=== PATIENT | female | born 1965 | race Hispanic/Latino ===

== ENCOUNTER 2022-01-12 16:26 | Inpatient (IN) | payer MEDICAID ==
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
--- NOTE | 2022-01-14 08:44 | History and Physical Report ---
GP History & Physical - History of Present Illness Date of admission: 01/13/22 Date of Examination: 01/14/22 Reason for Admission: Danger to self, Failure of Outpatient Treatment, Severe anxiety/depression History of Present Illness: HPI: Delusional, Walking into traffic, non-compliant w/ meds and responding to internal stimuli. The patient was seen today. She is delusional. Her thoughts are somewhat disorganized. The patient is unkempt. When I ask her, her name she says "call me whatever you wanna call me." She endorses a past use of "meth, crack, cocaine." The patient doesn't recall any of her meds. She says she is here because "they made me have mental health. They've been making me have it for years." I ask the the patient who are "they." She says "the ones making me have it." The patient says "I want an nib inspector and take it to the highest court." She denies SI/HI or hallucinations. She says "no, none of that." PAST PSYCHIATRIC HISTORY: Unable to assess PAST MEDICAL HISTORY: None reported Family Psychiatric History None reported or documented SOCIAL HISTORY Unable to assess REVIEW OF SYSTEMS Unable to assess MENTAL STATUS Unable to assess Treatment Plan Patient will be admitted for inpatient psychiatric evaluation, medication adjustment and close monitoring The patient's behavior, mood, sleep and appetite will be closely monitored. Patient will be enrolled in individual and group therapeutic sessions and encouraged to attend. Patient will be provided with a safe and structured environment. Patient's physical health needs will be addressed by the Hospitalist. Hospitalist Consulted Labs including CBC, CMP, Lipid profile and Hemoglobin A1C ordered Social Assessment will be completed and the Fiberglass Luggage Molder will work with patient and family to ensure a suitable and safe disposition Medication adjustment will be made as clinically indicated Restarted home meds Usual Wellness Worship/Preservation: -Trazodone 50mg po qhs - Start [place]-3 for brain health, reduce impulsivity, and as adjunctive treatment for mood disorder, continue upon discharge given overall benefits. The patient agreed on the treatment plan, understood the risk, benefit, alternative treatment, potential consequence of no treatment, and gave informed consent. Legal Status: Voluntary Reaction to Hospitalization: Accepting Medications and Allergies Allergies Allergy/AdvReac Type Severity Reaction Status Date / Time No Known Allergies Allergy Unverified 01/13/22 17:36 Home Medications Medication Instructions Recorded Confirmed Last Taken Type HYDROcodone/APAP 5-325 [[place] 1 each PO Q4HR PRN 01/13/22 01/13/22 Unknown History 5/325] Hyoscyamine Subl [Levsin Sl 0.125 0.125 mg PO Q4HR PRN 01/13/22 01/13/22 Unknown History TAB] Ibuprofen [Motrin] 800 mg PO Q8HR PRN 01/13/22 01/13/22 Unknown History [place] Carbonate [Eskalith] 300 mg PO TID 01/13/22 01/13/22 Unknown History Naproxen [Naprosyn] 500 mg PO Q12HR PRN 01/13/22 01/13/22 Unknown History OLANzapine [ZyPREXA] 5 mg PO QHS 01/13/22 01/13/22 Unknown History Oxycodone HCl/Acetaminophen 1 each PO Q6HR PRN 01/13/22 01/13/22 Unknown History [Percocet 7.5/325 mg] Sucralfate [Carafate] 1 gm PO ACHS 01/13/22 01/13/22 Unknown History metroNIDAZOLE [Flagyl] 500 mg PO Q8HR 01/13/22 01/13/22 Unknown History traMADoL [Ultram] 50 mg PO Q4HR PRN 01/13/22 01/13/22 Unknown History Active Meds: Active Medications Ziprasidone (Ziprasidone Mesylate 20 Mg Vial) 20 mg IM Q4H PRN PRN Reason: Agitation Results - Results Labs/Vitals: Last Vital Signs Temp 98.6 F 01/13/22 19:51 Pulse 97 H 01/13/22 19:51 Resp 18 01/13/22 19:51 BP 102/74 01/13/22 19:51 Pulse Ox 98 01/13/22 19:51 Physical Examination - Constitutional Vitals: Vital Signs Temp Pulse Resp BP Pulse Ox 98.6 F 97 H 18 102/74 98 01/13/22 19:51 01/13/22 19:51 01/13/22 19:51 01/13/22 19:51 01/13/22 19:51 Temperature -Last 24 Hours Temperature 98.6 F Mental Status Exam - Vital signs Last Vital Signs Temp 98.6 F 01/13/22 19:51 Pulse 97 H 01/13/22 19:51 Resp 18 01/13/22 19:51 BP 102/74 01/13/22 19:51 Pulse Ox 98 01/13/22 19:51 Physician Certification - Certification Statement Physician Certification Statement: This is an acknowledgement statement that RHONDA YOUNG is a 56 year old F who requires inpatient psychiatric admission for treatment which could reasonably be expected to improve the patient's condition for Estimated period of time patient will need to remain in the hospital: [ ] Plan for post-hospital care: [ ]
[2022-01-14] MEDS ORDERED: NAPROXEN 500 MG TAB PO PRN (10:00)
[2022-01-14] MEDS ORDERED: traMADol 50 MG TAB PO PRN (10:00)
[2022-01-14] MEDS ORDERED: HYOSCYAMINE SUBL 0.125 MG TAB PO PRN (10:00)
[2022-01-14 11:16] LABS: Basophils # (Auto) 0.1 K/mm3 (0.0-0.1); Basophils % (Auto) 1.2 % (0.0-1.8); Eosinophils # (Auto) 0.1 K/mm3 (0.0-0.4); Eosinophils % (Auto) 1.6 % (0.0-4.3); Hematocrit 40.6 % (30.3-42.9); Hemoglobin 13.3 gm/dl (10.1-14.3); Lymphocytes # (Auto) 1.3 K/mm3 (1.2-5.4); Mean Corpuscular HGB Conc 33 % (30-34); Mean Corpuscular Volume 98 fl (79-97); Monocytes # (Auto) 0.3 K/mm3 (0.0-0.8); Monocytes % (Auto) 6.4 % (0.0-7.3); Red Blood Count 4.13 M/mm3 (3.65-5.03); Red Cell Distribution Width 13.7 % (13.2-15.2)
[2022-01-14 11:29] LABS: Platelet Count 183 K/mm3 (140-440)
[2022-01-14 11:43] LABS: Alanine Aminotransferase 20 units/L (7-56); Albumin 3.5 g/dL (3.9-5); Blood Urea Nitrogen 12 mg/dL (7-17); Chol/HDL Ratio 3.27 %; HDL Cholesterol 43 mg/dL (40-59); Hemolysis Index 14; LDL Cholesterol,Direct 81 mg/dL (50-130)
[2022-01-14 11:51] LABS: BUN/Creatinine Ratio 24
[2022-01-14] MEDS: IBUPROFEN 800 MG TAB PO PRN (13:46)
[2022-01-14] MEDS: LITHIUM CARBONATE 300 MG CAP PO SCH ×2 (13:47→20:26)
[2022-01-14] MEDS: SUCRALFATE 1 GM TAB PO SCH ×3 (16:30→21:55)
[2022-01-14] MEDS: NICOTINE 21 MG/24 HR PATCH TD SCH (17:16)
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
[2022-01-15] MEDS: SUCRALFATE 1 GM TAB PO SCH ×4 (08:45→21:23)
[2022-01-15] MEDS: LITHIUM CARBONATE 300 MG CAP PO SCH ×3 (08:45→20:54)
[2022-01-15] MEDS: NICOTINE 21 MG/24 HR PATCH TD SCH (09:00)
--- NOTE | 2022-01-15 12:01 | Progress Note ---
Subjective Date of service: 01/15/22 Subjective Comment: The patient was seen this morning. She reports doing doing well and focused on discharge. The patient reported having intermittent AVH. non-commanding. The patient denies depression. She denies SI/HI. REVIEW OF SYSTEMS Unable to assess MENTAL STATUS Unable to assess Treatment Plan Patient will be admitted for inpatient psychiatric evaluation, medication adjustment and close monitoring The patient's behavior, mood, sleep and appetite will be closely monitored. Patient will be enrolled in individual and group therapeutic sessions and encouraged to attend. Patient will be provided with a safe and structured environment. Patient's physical health needs will be addressed by the Hospitalist. Hospitalist Consulted Labs including CBC, CMP, Lipid profile and Hemoglobin A1C ordered Social Assessment will be completed and the Ac/Dc Rewinder will work with patient and family to ensure a suitable and safe disposition Medication adjustment will be made as clinically indicated Continue home meds Usual Wellness Yarsanism/Preservation: -Trazodone 50mg po qhs - Start [place]-3 for brain health, reduce impulsivity, and as adjunctive treatment for mood disorder, continue upon discharge given overall benefits. The patient agreed on the treatment plan, understood the risk, benefit, alternative treatment, potential consequence of no treatment, and gave informed consent. Legal Status: Voluntary Reaction to Hospitalization: Accepting Medications and Allergies Medications and Allergies Allergies Allergy/AdvReac Type Severity Reaction Status Date / Time No Known Allergies Allergy Unverified 01/13/22 17:36 Home Medications Medication Instructions Recorded Confirmed Last Taken Type HYDROcodone/APAP 5-325 [[place] 1 each PO Q4HR PRN 01/13/22 01/13/22 Unknown History 5/325] Hyoscyamine Subl [Levsin Sl 0.125 0.125 mg PO Q4HR PRN 01/13/22 01/13/22 Unknown History TAB] Ibuprofen [Motrin] 800 mg PO Q8HR PRN 01/13/22 01/13/22 Unknown History [place] Carbonate [Eskalith] 300 mg PO TID 01/13/22 01/13/22 Unknown History Naproxen [Naprosyn] 500 mg PO Q12HR PRN 01/13/22 01/13/22 Unknown History OLANzapine [ZyPREXA] 5 mg PO QHS 01/13/22 01/13/22 Unknown History Oxycodone HCl/Acetaminophen 1 each PO Q6HR PRN 01/13/22 01/13/22 Unknown History [Percocet 7.5/325 mg] Sucralfate [Carafate] 1 gm PO ACHS 01/13/22 01/13/22 Unknown History metroNIDAZOLE [Flagyl] 500 mg PO Q8HR 01/13/22 01/13/22 Unknown History traMADoL [Ultram] 50 mg PO Q4HR PRN 01/13/22 01/13/22 Unknown History Active Meds: Active Medications Hyoscyamine (Hyoscyamine Subl 0.125 Mg Tab) 0.125 mg PO Q4HR PRN PRN Reason: cramping Ibuprofen (Ibuprofen 800 Mg Tab) 800 mg PO Q8HR PRN PRN Reason: Pain , Severe (7-10) Last Admin: 01/14/22 13:46 Dose: 800 mg [place] Carbonate ([place] Carbonate 300 Mg Cap) 300 mg PO TID [facility] Last Admin: 01/15/22 08:45 Dose: 300 mg Naproxen (Naproxen 500 Mg Tab) 500 mg PO Q12HR PRN PRN Reason: Pain , Severe (7-10) Nicotine (Nicotine 21 Mg/24 Hr Patch) 21 mg TD QDAY [facility] Last Admin: 01/14/22 17:16 Dose: 21 mg Olanzapine (Olanzapine 5 Mg Tab) 5 mg PO QHS [facility] Last Admin: 01/14/22 21:55 Dose: 5 mg Sucralfate (Sucralfate 1 Gm Tab) 1 gm PO [facility] Last Admin: 01/15/22 08:45 Dose: 1 gm Tramadol HCl (Tramadol 50 Mg Tab) 50 mg PO Q4HR PRN PRN Reason: PAIN Ziprasidone (Ziprasidone Mesylate 20 Mg Vial) 20 mg IM Q4H PRN PRN Reason: Agitation Results - Results Labs/Vitals: Laboratory Last Values WBC 5.1 K/mm3 (4.5-11.0) 01/13/22 10:38 RBC 4.13 M/mm3 (3.65-5.03) 01/13/22 10:38 Hgb 13.3 gm/dl (10.1-14.3) 01/13/22 10:38 Hct 40.6 % (30.3-42.9) 01/13/22 10:38 MCV 98 fl (79-97) H 01/13/22 10:38 MCH 32 pg (28-32) 01/13/22 10:38 MCHC 33 % (30-34) 01/13/22 10:38 RDW 13.7 % (13.2-15.2) 01/13/22 10:38 Plt Count 183 K/mm3 (140-440) 01/13/22 10:38 Lymph % (Auto) 26.0 % (13.4-35.0) 01/13/22 10:38 [place] % (Auto) 6.4 % (0.0-7.3) 01/13/22 10:38 Eos % (Auto) 1.6 % (0.0-4.3) 01/13/22 10:38 Baso % (Auto) 1.2 % (0.0-1.8) 01/13/22 10:38 Lymph # (Auto) 1.3 K/mm3 (1.2-5.4) 01/13/22 10:38 [place] # (Auto) 0.3 K/mm3 (0.0-0.8) 01/13/22 10:38 Eos # (Auto) 0.1 K/mm3 (0.0-0.4) 01/13/22 10:38 Baso # (Auto) 0.1 K/mm3 (0.0-0.1) 01/13/22 10:38 Seg Neutrophils % 64.8 % (40.0-70.0) 01/13/22 10:38 Seg Neutrophils # 3.3 K/mm3 (1.8-7.7) 01/13/22 10:38 Sodium 143 mmol/L (137-145) 01/13/22 10:44 Potassium 4.6 mmol/L (3.6-5.0) 01/13/22 10:44 Chloride 109.6 mmol/L (98-107) H 01/13/22 10:44 Carbon Dioxide 27 mmol/L (22-30) 01/13/22 10:44 Anion Gap 11 mmol/L 01/13/22 10:44 BUN 12 mg/dL (7-17) 01/13/22 10:44 Creatinine 0.5 mg/dL (0.6-1.2) L 01/13/22 10:44 Estimated GFR > 60 ml/min 01/13/22 10:44 BUN/Creatinine Ratio 24 % 01/13/22 10:44 Glucose 89 mg/dL (65-100) 01/13/22 10:44 Hemoglobin A1c 5.5 % (4-6) 01/13/22 10:44 Calcium 9.0 mg/dL (8.4-10.2) 01/13/22 10:44 Total Bilirubin 0.20 mg/dL (0.1-1.2) 01/13/22 10:44 AST 26 units/L (5-40) 01/13/22 10:44 ALT 20 units/L (7-56) 01/13/22 10:44 Alkaline Phosphatase 87 units/L (35-129) 01/13/22 10:44 Total Protein 5.9 g/dL (6.3-8.2) L 01/13/22 10:44 Albumin 3.5 g/dL (3.9-5) L 01/13/22 10:44 Albumin/Globulin Ratio 1.5 % 01/13/22 10:44 Triglycerides 115 mg/dL (2-149) 01/13/22 10:44 Cholesterol 141 mg/dL (50-199) 01/13/22 10:44 LDL Cholesterol Direct 81 mg/dL (50-130) 01/13/22 10:44 HDL Cholesterol 43 mg/dL (40-59) 01/13/22 10:44 Cholesterol/HDL Ratio 3.27 % 01/13/22 10:44 TSH 0.946 mlU/mL (0.270-4.200) 01/13/22 10:38 [place] 0.1 mmol/L (0.0-1.2) 01/14/22 10:38 Last Vital Signs Temp 98.3 F 01/14/22 21:03 Pulse 88 01/14/22 21:03 Resp 16 01/14/22 21:03 BP 117/64 01/14/22 21:03 Pulse Ox 99 01/14/22 21:03
[2022-01-15] MEDS ORDERED: WATER FOR INJ Sterile (PF) 10 ML ONE (13:21)
[2022-01-15] MEDS: ZIPRASIDONE MESYLATE 20 MG VIAL IM PRN (13:30)
[2022-01-16] MEDS: ZIPRASIDONE MESYLATE 20 MG VIAL IM PRN (00:13)
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
--- NOTE | 2022-01-16 09:19 | Progress Note ---
Subjective Date of service: 01/16/22 Subjective Comment: 01/16:The patient was seen this morning. The patient presents as angry, Isolating and focused on discharge. She lacks insight " I told them not to place in a place like this, I don't want to take that lithium." the patient is verbally aggressive and irritable. She denies SI/HI. Per nurse, " pt alert and oriented to person and place, angry affect, irritable, verbally aggressive towards staff, medication compliant, good appetite, constant asking for something to eat, staff offered extra snack, Pt observed responding to internal stimuli, pacing back and forth in her room, yelling, slammed the door multiple times, refused verbal redirection. Geodon 20mg IM administered prn for severe agitation at 0013 with good effect." 01/15:The patient was seen this morning. She reports doing doing well and focused on discharge. The patient reported having intermittent AVH. non- commanding. The patient denies depression. She denies SI/HI. REVIEW OF SYSTEMS Constitutional: Negative for weight loss ENT: Negative for stridor Respiratory: Negative for cough or hemoptysis All other systems reviewed and are negative MENTAL STATUS EXAMINATION General Appearance and Behavior: Age appropriate, wearing appropriate clothes, cooperative, polite with questioning, good eye contact Cooperation: cooperative Psychomotor Behavior: Psychomotor normal Mood: angry Affect and affective range: congruent with stated affect Thought Process: Goal directed Thought Content: reality oriented Speech: Normal volume, Regular rate and rhythm Suicidal Ideation: Denies Homicidal Ideation: Denies Hallucination: Denies Delusions: None elicited Impulse Control: Limited Insight and Judgment: Limited Memory: intact Attention: attentive Orientation: Alert and oriented Assessment Schizoaffective disorder Treatment Plan Patient will be admitted for inpatient psychiatric evaluation, medication adjustment and close monitoring The patient's behavior, mood, sleep and appetite will be closely monitored. Patient will be enrolled in individual and group therapeutic sessions and encouraged to attend. Patient will be provided with a safe and structured environment. Patient's physical health needs will be addressed by the Hospitalist. Hospitalist Consulted Labs including CBC, CMP, Lipid profile and Hemoglobin A1C ordered Social Assessment will be completed and the House Mover will work with patient and family to ensure a suitable and safe disposition Medication adjustment will be made as clinically indicated Continue home meds Usual Wellness Buddhism/Preservation: -Trazodone 50mg po qhs - Start [place]-3 for brain health, reduce impulsivity, and as adjunctive treatment for mood disorder, continue upon discharge given overall benefits. The patient agreed on the treatment plan, understood the risk, benefit, alternative treatment, potential consequence of no treatment, and gave informed consent. Legal Status: Voluntary Reaction to Hospitalization: Accepting Medications and Allergies Medications and Allergies Allergies Allergy/AdvReac Type Severity Reaction Status Date / Time No Known Allergies Allergy Unverified 01/13/22 17:36 Home Medications Medication Instructions Recorded Confirmed Last Taken Type HYDROcodone/APAP 5-325 [[place] 1 each PO Q4HR PRN 01/13/22 01/13/22 Unknown History 5/325] Hyoscyamine Subl [Levsin Sl 0.125 0.125 mg PO Q4HR PRN 01/13/22 01/13/22 Unknown History TAB] Ibuprofen [Motrin] 800 mg PO Q8HR PRN 01/13/22 01/13/22 Unknown History [place] Carbonate [Eskalith] 300 mg PO TID 01/13/22 01/13/22 Unknown History Naproxen [Naprosyn] 500 mg PO Q12HR PRN 01/13/22 01/13/22 Unknown History OLANzapine [ZyPREXA] 5 mg PO QHS 01/13/22 01/13/22 Unknown History Oxycodone HCl/Acetaminophen 1 each PO Q6HR PRN 01/13/22 01/13/22 Unknown History [Percocet 7.5/325 mg] Sucralfate [Carafate] 1 gm PO ACHS 01/13/22 01/13/22 Unknown History metroNIDAZOLE [Flagyl] 500 mg PO Q8HR 01/13/22 01/13/22 Unknown History traMADoL [Ultram] 50 mg PO Q4HR PRN 01/13/22 01/13/22 Unknown History Active Meds: Active Medications Hyoscyamine (Hyoscyamine Subl 0.125 Mg Tab) 0.125 mg PO Q4HR PRN PRN Reason: cramping Ibuprofen (Ibuprofen 800 Mg Tab) 800 mg PO Q8HR PRN PRN Reason: Pain , Severe (7-10) Last Admin: 01/14/22 13:46 Dose: 800 mg [place] Carbonate ([place] Carbonate 300 Mg Cap) 300 mg PO TID [facility] Last Admin: 08/05/22 20:54 Dose: 300 mg Naproxen (Naproxen 500 Mg Tab) 500 mg PO Q12HR PRN PRN Reason: Pain , Severe (7-10) Nicotine (Nicotine 21 Mg/24 Hr Patch) 21 mg TD QDAY [facility] Last Admin: 01/15/22 09:00 Dose: 21 mg Olanzapine (Olanzapine 5 Mg Tab) 5 mg PO QHS [facility] Last Admin: 01/15/22 21:23 Dose: 5 mg Sucralfate (Sucralfate 1 Gm Tab) 1 gm PO ACHS [facility] Last Admin: 01/15/22 21:23 Dose: 1 gm Tramadol HCl (Tramadol 50 Mg Tab) 50 mg PO Q4HR PRN PRN Reason: PAIN Results - Results Labs/Vitals: Laboratory Last Values WBC 5.1 K/mm3 (4.5-11.0) 01/13/22 10:38 RBC 4.13 M/mm3 (3.65-5.03) 01/13/22 10:38 Hgb 13.3 gm/dl (10.1-14.3) 01/13/22 10:38 Hct 40.6 % (30.3-42.9) 01/13/22 10:38 MCV 98 fl (79-97) H 01/13/22 10:38 MCH 32 pg (28-32) 01/13/22 10:38 MCHC 33 % (30-34) 01/13/22 10:38 RDW 13.7 % (13.2-15.2) 01/13/22 10:38 Plt Count 183 K/mm3 (140-440) 01/13/22 10:38 Lymph % (Auto) 26.0 % (13.4-35.0) 01/13/22 10:38 [place] % (Auto) 6.4 % (0.0-7.3) 01/13/22 10:38 Eos % (Auto) 1.6 % (0.0-4.3) 01/13/22 10:38 Baso % (Auto) 1.2 % (0.0-1.8) 01/13/22 10:38 Lymph # (Auto) 1.3 K/mm3 (1.2-5.4) 01/13/22 10:38 [place] # (Auto) 0.3 K/mm3 (0.0-0.8) 01/13/22 10:38 Eos # (Auto) 0.1 K/mm3 (0.0-0.4) 01/13/22 10:38 Baso # (Auto) 0.1 K/mm3 (0.0-0.1) 01/13/22 10:38 Seg Neutrophils % 64.8 % (40.0-70.0) 01/13/22 10:38 Seg Neutrophils # 3.3 K/mm3 (1.8-7.7) 01/13/22 10:38 Sodium 143 mmol/L (137-145) 01/13/22 10:44 Potassium 4.6 mmol/L (3.6-5.0) 01/13/22 10:44 Chloride 109.6 mmol/L (98-107) H 01/13/22 10:44 Carbon Dioxide 27 mmol/L (22-30) 01/13/22 10:44 Anion Gap 11 mmol/L 01/13/22 10:44 BUN 12 mg/dL (7-17) 01/13/22 10:44 Creatinine 0.5 mg/dL (0.6-1.2) L 01/13/22 10:44 Estimated GFR > 60 ml/min 01/13/22 10:44 BUN/Creatinine Ratio 24 % 01/13/22 10:44 Glucose 89 mg/dL (65-100) 01/13/22 10:44 POC Glucose 138 mg/dL (70-105) H 01/15/22 19:39 Hemoglobin A1c 5.5 % (4-6) 01/13/22 10:44 Calcium 9.0 mg/dL (8.4-10.2) 01/13/22 10:44 Total Bilirubin 0.20 mg/dL (0.1-1.2) 01/13/22 10:44 AST 26 units/L (5-40) 01/13/22 10:44 ALT 20 units/L (7-56) 01/13/22 10:44 Alkaline Phosphatase 87 units/L (35-129) 01/13/22 10:44 Total Protein 5.9 g/dL (6.3-8.2) L 01/13/22 10:44 Albumin 3.5 g/dL (3.9-5) L 01/13/22 10:44 Albumin/Globulin Ratio 1.5 % 01/13/22 10:44 Triglycerides 115 mg/dL (2-149) 01/13/22 10:44 Cholesterol 141 mg/dL (50-199) 01/13/22 10:44 LDL Cholesterol Direct 81 mg/dL (50-130) 01/13/22 10:44 HDL Cholesterol 43 mg/dL (40-59) 01/13/22 10:44 Cholesterol/HDL Ratio 3.27 % 01/13/22 10:44 TSH 0.946 mlU/mL (0.270-4.200) 01/13/22 10:38 [place] 0.1 mmol/L (0.0-1.2) 01/14/22 10:38 Last Vital Signs Temp 97.2 F L 01/16/22 09:09 Pulse 95 H 01/16/22 09:06 Resp 18 01/16/22 09:09 BP 91/61 01/16/22 09:06 Pulse Ox 97 01/16/22 09:09
[2022-01-16] MEDS ORDERED: ZIPRASIDONE MESYLATE 20 MG VIAL IM PRN (09:27)
[2022-01-16] MEDS: SUCRALFATE 1 GM TAB PO SCH ×5 (10:07→22:00)
[2022-01-16] MEDS: NICOTINE 21 MG/24 HR PATCH TD SCH (10:07)
[2022-01-16] MEDS: LITHIUM CARBONATE 300 MG CAP PO SCH ×4 (10:13→22:00)
[2022-01-16] MEDS ORDERED: WATER FOR INJ Sterile (PF) 10 ML ONE ×2 (19:49)
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
[2022-01-17] MEDS ORDERED: clonazePAM 0.5 MG TAB PO PRN (08:42)
--- NOTE | 2022-01-17 08:46 | Progress Note ---
Subjective Date of service: 01/17/22 Subjective Comment: 01/17:The patient was seen eating breakfast on the floor. The patient is refusing to engage; selective mutism. Per nurse,"Last evening the patient presented as angry and irritable. She was verbally abusive to staff. Patient has [id number]. She will be talking normally and then veer off into a bizarre topic that has nothing to do with conversation. She stated she took the sim card out of her phone and swallowed it. At bedtime the patient refused her medica tions and asked for a shot. She was given Geodon IM. Patient went to her room for a short time and lay in bed but did not sleep. She spent the night coming out asking for ice water and juice. Patient is discussed being upset that she is still here stating that she did not want to go anywhere. Patient states "This always happens to me." This freelance copywriter tried to discuss medication compliance with patient but she immediately stated she would not take medications because they didn't help. She described the "noises" that come to her head as she points behind her ear. She talks about how she has never had things in her life that others have. Yet she refuses to discuss taking meds." Start Haldol 5mg po/IM BID, Klonopin 0.5mg po BID PRN. 01/16:The patient was seen this morning. The patient presents as angry, Isolating and focused on discharge. She lacks insight " I told them not to place in a place like this, I don't want to take that lithium." the patient is verbally aggressive and irritable. She denies SI/HI. Per nurse, " pt alert and oriented to person and place, angry affect, irritable, verbally aggressive towards staff, medication compliant, good appetite, constant asking for something to eat, staff offered extra snack, Pt observed responding to internal stimuli, pacing back and forth in her room, yelling, slammed the door multiple times, refused verbal redirection. Geodon 20mg IM administered prn for severe agitation at 0013 with good effect." 01/15:The patient was seen this morning. She reports doing doing well and focused on discharge. The patient reported having intermittent AVH. non- commanding. The patient denies depression. She denies SI/HI. REVIEW OF SYSTEMS MENTAL STATUS EXAMINATION Assessment Schizoaffective disorder Treatment Plan Patient will be admitted for inpatient psychiatric evaluation, medication adjustment and close monitoring The patient's behavior, mood, sleep and appetite will be closely monitored. Patient will be enrolled in individual and group therapeutic sessions and encouraged to attend. Patient will be provided with a safe and structured environment. Patient's physical health needs will be addressed by the Hospitalist. Hospitalist Consulted Labs including CBC, CMP, Lipid profile and Hemoglobin A1C ordered Social Assessment will be completed and the Attending Pathologist will work with patient and family to ensure a suitable and safe disposition Medication adjustment will be made as clinically indicated Continue home meds Start Haldol 5mg po/IM BID, Klonopin 0.5mg po BID PRN. Usual Wellness Muslim/Preservation: -Trazodone 50mg po qhs - Start [place]-3 for brain health, reduce impulsivity, and as adjunctive treatment for mood disorder, continue upon discharge given overall benefits. The patient agreed on the treatment plan, understood the risk, benefit, alternative treatment, potential consequence of no treatment, and gave informed consent. Legal Status:In Voluntary Reaction to Hospitalization: Not Accepting Medications and Allergies Medications and Allergies Allergies Allergy/AdvReac Type Severity Reaction Status Date / Time No Known Allergies Allergy Unverified 01/13/22 17:36 Home Medications Medication Instructions Recorded Confirmed Last Taken Type HYDROcodone/APAP 5-325 [[place] 1 each PO Q4HR PRN 01/13/22 01/13/22 Unknown History 5/325] Hyoscyamine Subl [Levsin Sl 0.125 0.125 mg PO Q4HR PRN 01/13/22 01/13/22 Unknown History TAB] Ibuprofen [Motrin] 800 mg PO Q8HR PRN 01/13/22 01/13/22 Unknown History [place] Carbonate [Eskalith] 300 mg PO TID 01/13/22 01/13/22 Unknown History Naproxen [Naprosyn] 500 mg PO Q12HR PRN 01/13/22 01/13/22 Unknown History OLANzapine [ZyPREXA] 5 mg PO QHS 01/13/22 01/13/22 Unknown History Oxycodone HCl/Acetaminophen 1 each PO Q6HR PRN 01/13/22 01/13/22 Unknown History [Percocet 7.5/325 mg] Sucralfate [Carafate] 1 gm PO ACHS 01/13/22 01/13/22 Unknown History metroNIDAZOLE [Flagyl] 500 mg PO Q8HR 01/13/22 01/13/22 Unknown History traMADoL [Ultram] 50 mg PO Q4HR PRN 01/13/22 01/13/22 Unknown History Active Meds: Active Medications Clonazepam (Clonazepam 0.5 Mg Tab) 0.5 mg PO BID PRN PRN Reason: Anxiety Haloperidol (Haloperidol 5 Mg Tab) 5 mg PO BID [facility] Haloperidol Lactate (Haloperidol Lactate 5 Mg/1 Ml Inj) 5 mg IM BID [facility] Hyoscyamine (Hyoscyamine Subl 0.125 Mg Tab) 0.125 mg PO Q4HR PRN PRN Reason: cramping Ibuprofen (Ibuprofen 800 Mg Tab) 800 mg PO Q8HR PRN PRN Reason: Pain , Severe (7-10) Last Admin: 01/14/22 13:46 Dose: 800 mg [place] Carbonate ([place] Carbonate 300 Mg Cap) 300 mg PO TID [facility] Last Admin: 01/16/22 22:00 Dose: Not Given Naproxen (Naproxen 500 Mg Tab) 500 mg PO Q12HR PRN PRN Reason: Pain , Severe (7-10) Nicotine (Nicotine 21 Mg/24 Hr Patch) 21 mg TD QDAY [facility] Last Admin: 01/16/22 10:07 Dose: 21 mg Sucralfate (Sucralfate 1 Gm Tab) 1 gm PO [facility] Last Admin: 01/16/22 22:00 Dose: Not Given Tramadol HCl (Tramadol 50 Mg Tab) 50 mg PO Q4HR PRN PRN Reason: PAIN Ziprasidone (Ziprasidone Mesylate 20 Mg Vial) 20 mg IM Q4H PRN PRN Reason: Agitation Last Admin: 01/16/22 22:14 Dose: 20 mg Results - Results Labs/Vitals: Laboratory Last Values WBC 5.1 K/mm3 (4.5-11.0) 01/13/22 10:38 RBC 4.13 M/mm3 (3.65-5.03) 01/13/22 10:38 Hgb 13.3 gm/dl (10.1-14.3) 01/13/22 10:38 Hct 40.6 % (30.3-42.9) 01/13/22 10:38 MCV 98 fl (79-97) H 01/13/22 10:38 MCH 32 pg (28-32) 01/13/22 10:38 MCHC 33 % (30-34) 01/13/22 10:38 RDW 13.7 % (13.2-15.2) 01/13/22 10:38 Plt Count 183 K/mm3 (140-440) 01/13/22 10:38 Lymph % (Auto) 26.0 % (13.4-35.0) 01/13/22 10:38 [place] % (Auto) 6.4 % (0.0-7.3) 01/13/22 10:38 Eos % (Auto) 1.6 % (0.0-4.3) 01/13/22 10:38 Baso % (Auto) 1.2 % (0.0-1.8) 01/13/22 10:38 Lymph # (Auto) 1.3 K/mm3 (1.2-5.4) 01/13/22 10:38 [place] # (Auto) 0.3 K/mm3 (0.0-0.8) 01/13/22 10:38 Eos # (Auto) 0.1 K/mm3 (0.0-0.4) 01/13/22 10:38 Baso # (Auto) 0.1 K/mm3 (0.0-0.1) 01/13/22 10:38 Seg Neutrophils % 64.8 % (40.0-70.0) 01/13/22 10:38 Seg Neutrophils # 3.3 K/mm3 (1.8-7.7) 01/13/22 10:38 Sodium 143 mmol/L (137-145) 01/13/22 10:44 Potassium 4.6 mmol/L (3.6-5.0) 01/13/22 10:44 Chloride 109.6 mmol/L (98-107) H 01/13/22 10:44 Carbon Dioxide 27 mmol/L (22-30) 01/13/22 10:44 Anion Gap 11 mmol/L 01/13/22 10:44 BUN 12 mg/dL (7-17) 01/13/22 10:44 Creatinine 0.5 mg/dL (0.6-1.2) L 01/13/22 10:44 Estimated GFR > 60 ml/min 01/13/22 10:44 BUN/Creatinine Ratio 24 % 01/13/22 10:44 Glucose 89 mg/dL (65-100) 01/13/22 10:44 POC Glucose 138 mg/dL (70-105) H 01/15/22 19:39 Hemoglobin A1c 5.5 % (4-6) 01/13/22 10:44 Calcium 9.0 mg/dL (8.4-10.2) 01/13/22 10:44 Total Bilirubin 0.20 mg/dL (0.1-1.2) 01/13/22 10:44 AST 26 units/L (5-40) 01/13/22 10:44 ALT 20 units/L (7-56) 01/13/22 10:44 Alkaline Phosphatase 87 units/L (35-129) 01/13/22 10:44 Total Protein 5.9 g/dL (6.3-8.2) L 01/13/22 10:44 Albumin 3.5 g/dL (3.9-5) L 01/13/22 10:44 Albumin/Globulin Ratio 1.5 % 01/13/22 10:44 Triglycerides 115 mg/dL (2-149) 01/13/22 10:44 Cholesterol 141 mg/dL (50-199) 01/13/22 10:44 LDL Cholesterol Direct 81 mg/dL (50-130) 01/13/22 10:44 HDL Cholesterol 43 mg/dL (40-59) 01/13/22 10:44 Cholesterol/HDL Ratio 3.27 % 01/13/22 10:44 TSH 0.946 mlU/mL (0.270-4.200) 01/13/22 10:38 [place] 0.1 mmol/L (0.0-1.2) 01/14/22 10:38 Last Vital Signs Temp 97.2 F L 01/16/22 09:09 Pulse 95 H 01/16/22 09:06 Resp 18 01/16/22 09:09 BP 91/61 01/16/22 09:06 Pulse Ox 97 01/16/22 09:09
[2022-01-17] MEDS ORDERED: LORazepam 2 MG/ML VIAL IV PRN (08:51)
[2022-01-17] MEDS: LITHIUM CARBONATE 300 MG CAP PO SCH ×3 (09:22→21:19)
[2022-01-17] MEDS: SUCRALFATE 1 GM TAB PO SCH ×4 (09:22→21:19)
[2022-01-17] MEDS: HALOPERIDOL 5 MG TAB PO SCH ×2 (09:22→21:20)
[2022-01-17] MEDS: NICOTINE 21 MG/24 HR PATCH TD SCH (09:50)
[2022-01-17] MEDS: HALOPERIDOL LACTATE 5 MG/1 ML INJ IM SCH ×2 (09:50→21:19)
[2022-01-17] MEDS: LORazepam 2 MG/ML VIAL IM PRN (09:51)
--- NOTE | 2022-01-18 09:47 | Progress Note ---
Subjective Date of service: 01/18/22 Subjective Comment: 01/18:The patient was seen today. She is calm and cooperative. She is withdrawn but states she is doing well. The patient is doing well on Haldol. She denies any current suicidal/homicidal ideation and denies hallucination. No aggressive behavior reported. 01/17:The patient was seen eating breakfast on the floor. The patient is refusing to engage; selective mutism. Per nurse,"Last evening the patient presented as angry and irritable. She was verbally abusive to staff. Patient has [id number]. She will be talking normally and then veer off into a bizarre topic that has nothing to do with conversation. She stated she took the sim card out of her phone and swallowed it. At bedtime the patient refused her medications and asked for a shot. She was given Geodon IM. Patient went to her room for a short time and lay in bed but did not sleep. She spent the night coming out asking for ice water and juice. Patient is discussed being upset that she is still here stating that she did not want to go anywhere. Patient states "This always happens to me." This chart writer tried to discuss medication compliance with patient but she immediately stated she would not take medications because they didn't help. She described the "noises" that come to her head as she points behind her ear. She talks about how she has never had things in her life that others have. Yet she refuses to discuss taking meds." Start Haldol 5mg po/IM BID, Klonopin 0.5mg po BID PRN. 01/16:The patient was seen this morning. The patient presents as angry, Isolating and focused on discharge. She lacks insight " I told them not to place in a place like this, I don't want to take that lithium." the patient is verbally aggressive and irritable. She denies SI/HI. Per nurse, " pt alert and oriented to person and place, angry affect, irritable, verbally aggressive towards staff, medication compliant, good appetite, constant asking for something to eat, staff offered extra snack, Pt observed responding to internal stimuli, pacing back and forth in her room, yelling, slammed the door multiple times, refused verbal redirection. Geodon 20mg IM administered prn for severe agitation at 0013 with good effect." 01/15:The patient was seen this morning. She reports doing doing well and focused on discharge. The patient reported having intermittent AVH. non- commanding. The patient denies depression. She denies SI/HI. REVIEW OF SYSTEMS MENTAL STATUS EXAMINATION Assessment Schizoaffective disorder Treatment Plan Patient will be admitted for inpatient psychiatric evaluation, medication adjustment and close monitoring The patient's behavior, mood, sleep and appetite will be closely monitored. Patient will be enrolled in individual and group therapeutic sessions and encouraged to attend. Patient will be provided with a safe and structured environment. Patient's physical health needs will be addressed by the Hospitalist. Hospitalist Consulted Labs including CBC, CMP, Lipid profile and Hemoglobin A1C ordered Social Assessment will be completed and the Floor Space Allocator will work with patient and family to ensure a suitable and safe disposition Medication adjustment will be made as clinically indicated Continue home meds Start Haldol 5mg po/IM BID, Klonopin 0.5mg po BID PRN. Usual Wellness Evangelical/Preservation: -Trazodone 50mg po qhs - Start [place]-3 for brain health, reduce impulsivity, and as adjunctive treatment for mood disorder, continue upon discharge given overall benefits. The patient agreed on the treatment plan, understood the risk, benefit, alternative treatment, potential consequence of no treatment, and gave informed consent. Legal Status:In Voluntary Reaction to Hospitalization: Not Accepting Medications and Allergies Medications and Allergies Allergies Allergy/AdvReac Type Severity Reaction Status Date / Time No Known Allergies Allergy Unverified 01/13/22 17:36 Home Medications Medication Instructions Recorded Confirmed Last Taken Type HYDROcodone/APAP 5-325 [[place] 1 each PO Q4HR PRN 01/13/22 01/13/22 Unknown H istory 5/325] Hyoscyamine Subl [Levsin Sl 0.125 0.125 mg PO Q4HR PRN 01/13/22 01/13/22 Unknown History TAB] Ibuprofen [Motrin] 800 mg PO Q8HR PRN 01/13/22 01/13/22 Unknown History [place] Carbonate [Eskalith] 300 mg PO TID 01/13/22 01/13/22 Unknown History Naproxen [Naprosyn] 500 mg PO Q12HR PRN 01/13/22 01/13/22 Unknown History OLANzapine [ZyPREXA] 5 mg PO QHS 01/13/22 01/13/22 Unknown History Oxycodone HCl/Acetaminophen 1 each PO Q6HR PRN 01/13/22 01/13/22 Unknown History [Percocet 7.5/325 mg] Sucralfate [Carafate] 1 gm PO ACHS 01/13/22 01/13/22 Unknown History metroNIDAZOLE [Flagyl] 500 mg PO Q8HR 01/13/22 01/13/22 Unknown History traMADoL [Ultram] 50 mg PO Q4HR PRN 01/13/22 01/13/22 Unknown History Active Meds: Active Medications Haloperidol (Haloperidol 5 Mg Tab) 5 mg PO BID [facility] Last Admin: 01/17/22 21:20 Dose: 5 mg Haloperidol Lactate (Haloperidol Lactate 5 Mg/1 Ml Inj) 5 mg IM BID [facility] Last Admin: 01/17/22 21:19 Dose: Not Given Hyoscyamine (Hyoscyamine Subl 0.125 Mg Tab) 0.125 mg PO Q4HR PRN PRN Reason: cramping Ibuprofen (Ibuprofen 800 Mg Tab) 800 mg PO Q8HR PRN PRN Reason: Pain , Severe (7-10) Last Admin: 01/14/22 13:46 Dose: 800 mg [place] Carbonate ([place] Carbonate 300 Mg Cap) 300 mg PO TID [facility] Last Admin: 01/17/22 21:19 Dose: Not Given Lorazepam (Lorazepam 2 Mg/Ml Vial) 1 mg IM Q4H PRN PRN Reason: Agitation Last Admin: 01/17/22 09:51 Dose: 1 mg Naproxen (Naproxen 500 Mg Tab) 500 mg PO Q12HR PRN PRN Reason: Pain , Severe (7-10) Nicotine (Nicotine 21 Mg/24 Hr Patch) 21 mg TD QDAY [facility] Last Admin: 01/17/22 09:50 Dose: Not Given Sucralfate (Sucralfate 1 Gm Tab) 1 gm PO [facility] Last Admin: 01/17/22 21:19 Dose: Not Given Tramadol HCl (Tramadol 50 Mg Tab) 50 mg PO Q4HR PRN PRN Reason: PAIN Ziprasidone (Ziprasidone Mesylate 20 Mg Vial) 20 mg IM Q4H PRN PRN Reason: Agitation Last Admin: 01/16/22 22:14 Dose: 20 mg Results - Results Labs/Vitals: Laboratory Last Values WBC 5.1 K/mm3 (4.5-11.0) 01/13/22 10:38 RBC 4.13 M/mm3 (3.65-5.03) 01/13/22 10:38 Hgb 13.3 gm/dl (10.1-14.3) 01/13/22 10:38 Hct 40.6 % (30.3-42.9) 01/13/22 10:38 MCV 98 fl (79-97) H 01/13/22 10:38 MCH 32 pg (28-32) 01/13/22 10:38 MCHC 33 % (30-34) 01/13/22 10:38 RDW 13.7 % (13.2-15.2) 01/13/22 10:38 Plt Count 183 K/mm3 (140-440) 01/13/22 10:38 Lymph % (Auto) 26.0 % (13.4-35.0) 01/13/22 10:38 [place] % (Auto) 6.4 % (0.0-7.3) 01/13/22 10:38 Eos % (Auto) 1.6 % (0.0-4.3) 01/13/22 10:38 Baso % (Auto) 1.2 % (0.0-1.8) 01/13/22 10:38 Lymph # (Auto) 1.3 K/mm3 (1.2-5.4) 01/13/22 10:38 [place] # (Auto) 0.3 K/mm3 (0.0-0.8) 01/13/22 10:38 Eos # (Auto) 0.1 K/mm3 (0.0-0.4) 01/13/22 10:38 Baso # (Auto) 0.1 K/mm3 (0.0-0.1) 01/13/22 10:38 Seg Neutrophils % 64.8 % (40.0-70.0) 01/13/22 10:38 Seg Neutrophils # 3.3 K/mm3 (1.8-7.7) 01/13/22 10:38 Sodium 143 mmol/L (137-145) 01/13/22 10:44 Potassium 4.6 mmol/L (3.6-5.0) 01/13/22 10:44 Chloride 109.6 mmol/L (98-107) H 01/13/22 10:44 Carbon Dioxide 27 mmol/L (22-30) 01/13/22 10:44 Anion Gap 11 mmol/L 01/13/22 10:44 BUN 12 mg/dL (7-17) 01/13/22 10:44 Creatinine 0.5 mg/dL (0.6-1.2) L 01/13/22 10:44 Estimated GFR > 60 ml/min 01/13/22 10:44 BUN/Creatinine Ratio 24 % 01/13/22 10:44 Glucose 89 mg/dL (65-100) 01/13/22 10:44 POC Glucose 138 mg/dL (70-105) H 01/15/22 19:39 Hemoglobin A1c 5.5 % (4-6) 01/13/22 10:44 Calcium 9.0 mg/dL (8.4-10.2) 01/13/22 10:44 Total Bilirubin 0.20 mg/dL (0.1-1.2) 01/13/22 10:44 AST 26 units/L (5-40) 01/13/22 10:44 ALT 20 units/L (7-56) 01/13/22 10:44 Alkaline Phosphatase 87 units/L (35-129) 01/13/22 10:44 Total Protein 5.9 g/dL (6.3-8.2) L 01/13/22 10:44 Albumin 3.5 g/dL (3.9-5) L 01/13/22 10:44 Albumin/Globulin Ratio 1.5 % 01/13/22 10:44 Triglycerides 115 mg/dL (2-149) 01/13/22 10:44 Cholesterol 141 mg/dL (50-199) 01/13/22 10:44 LDL Cholesterol Direct 81 mg/dL (50-130) 01/13/22 10:44 HDL Cholesterol 43 mg/dL (40-59) 01/13/22 10:44 Cholesterol/HDL Ratio 3.27 % 01/13/22 10:44 TSH 0.946 mlU/mL (0.270-4.200) 01/13/22 10:38 [place] 0.1 mmol/L (0.0-1.2) 01/14/22 10:38 Last Vital Signs Temp 97.2 F L 01/16/22 09:09 Pulse 95 H 01/16/22 09:06 Resp 18 01/16/22 09:09 BP 91/61 01/16/22 09:06 Pulse Ox 97 01/16/22 09:09
[2022-01-18] MEDS: SUCRALFATE 1 GM TAB PO SCH ×4 (10:00→20:59)
[2022-01-18] MEDS: NICOTINE 21 MG/24 HR PATCH TD SCH (11:24)
[2022-01-18] MEDS: HALOPERIDOL 5 MG TAB PO SCH ×2 (11:26→20:59)
[2022-01-18] MEDS: HALOPERIDOL LACTATE 5 MG/1 ML INJ IM SCH ×2 (11:27→20:59)
[2022-01-18] MEDS: LITHIUM CARBONATE 300 MG CAP PO SCH ×3 (11:27→20:59)
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
[2022-01-19] MEDS: SUCRALFATE 1 GM TAB PO SCH ×4 (08:27→21:32)
[2022-01-19] MEDS: LITHIUM CARBONATE 300 MG CAP PO SCH ×3 (08:27→21:32)
[2022-01-19] MEDS: NICOTINE 21 MG/24 HR PATCH TD SCH (09:16)
[2022-01-19] MEDS: LORazepam 2 MG/ML VIAL IM PRN (09:17)
[2022-01-19] MEDS: HALOPERIDOL LACTATE 5 MG/1 ML INJ IM SCH ×2 (09:18→21:32)
[2022-01-19] MEDS: HALOPERIDOL 5 MG TAB PO SCH ×2 (09:18→21:31)
--- NOTE | 2022-01-19 09:33 | Progress Note ---
Subjective Date of service: 01/19/22 Subjective Comment: 01/19:The patient was seen today. The patient states she is doing well. She is easily irritable and angry; she became angry when told she not getting discharged today. She denies any current suicidal/homicidal ideation and denies hallucination 01/18:The patient was seen today. She is calm and cooperative. She is withdrawn but states she is doing well. The patient is doing well on Haldol. She denies any current suicidal/homicidal ideation and denies hallucination. No aggressive behavior reported. 01/17:The patient was seen eating breakfast on the floor. The patient is refusing to engage; selective mutism. Per nurse,"Last evening the patient presented as angry and irritable. She was verbally abusive to staff. Patient has [id number]. She will be talking normally and then veer off into a bizarre topic that has nothing to do with conversation. She stated she took the sim card out of her phone and swallowed it. At bedtime the patient refused her medications and asked for a shot. She was given Geodon IM. Patient went to her room for a short time and lay in bed but did not sleep. She spent the night coming out asking for ice water and juice. Patient is discussed being upset that she is still here stating that she did not want to go anywhere. Patient states "This always happens to me." This chart writer tried to discuss medication compliance with patient but she immediately stated she would not take medications because they didn't help. She described the "noises" that come to her head as she points behind her ear. She talks about how she has never had things in her life that others have. Yet she refuses to discuss taking meds." Start Haldol 5mg po/IM BID, Klonopin 0.5mg po BID PRN. 01/16:The patient was seen this morning. The patient presents as angry, Isolating and focused on discharge. She lacks insight " I told them not to place in a place like this, I don't want to take that lithium." the patient is verbally aggressive and irritable. She denies SI/HI. Per nurse, " pt alert and oriented to person and place, angry affect, irritable, verbally aggressive towards staff, medication compliant, good appetite, constant asking for something to eat, staff offered extra snack, Pt observed responding to internal stimuli, pacing back and forth in her room, yelling, slammed the door multiple times, refused verbal redirection. Geodon 20mg IM administered prn for severe agitation at 0013 with good effect." 01/15:The patient was seen this morning. She reports doing doing well and focused on discharge. The patient reported having intermittent AVH. non- commanding. The patient denies depression. She denies SI/HI. REVIEW OF SYSTEMS MENTAL STATUS EXAMINATION Assessment Schizoaffective disorder Treatment Plan Patient will be admitted for inpatient psychiatric evaluation, medication adjustment and close monitoring The patient's behavior, mood, sleep and appetite will be closely monitored. Patient will be enrolled in individual and group therapeutic sessions and encouraged to attend. Patient will be provided with a safe and structured environment. Patient's physical health needs will be addressed by the Hospitalist. Hospitalist Consulted Labs including CBC, CMP, Lipid profile and Hemoglobin A1C ordered Social Assessment will be completed and the Crop Farm Helper will work with patient and family to ensure a suitable and safe disposition Medication adjustment will be made as clinically indicated Continue home meds Start Haldol 5mg po/IM BID, Klonopin 0.5mg po BID PRN. Usual Wellness [facility]que/Preservation: -Trazodone 50mg po qhs - Start [place]-3 for brain health, reduce impulsivity, and as adjunctive treatment for mood disorder, continue upon discharge given overall benefits. The patient agreed on the treatment plan, understood the risk, benefit, alternative treatment, potential consequence of no treatment, and gave informed consent. Legal Status:In Voluntary Reaction to Hospitalization: Not Accepting Medications and Allergies Medications and Allergies Allergies Allergy/AdvReac Type Severity Reaction Status Date / Time No Known Allergies Allergy Unverified 01/13/22 17:36 Home Medications Medication Instructions Recorded Confirmed Last Taken Type HYDROcodone/APAP 5-325 [[place] 1 each PO Q4HR PRN 01/13/22 01/13/22 Unknown History 5/325] Hyoscyamine Subl [Levsin Sl 0.125 0.125 mg PO Q4HR PRN 01/13/22 01/13/22 Unknown History TAB] Ibuprofen [Motrin] 800 mg PO Q8HR PRN 01/13/22 01/13/22 Unknown History [place] Carbonate [Eskalith] 300 mg PO TID 01/13/22 01/13/22 Unknown History Naproxen [Naprosyn] 500 mg PO Q12HR PRN 01/13/22 01/13/22 Unknown History OLANzapine [ZyPREXA] 5 mg PO QHS 01/13/22 01/13/22 Unknown History Oxycodone HCl/Acetaminophen 1 each PO Q6HR PRN 01/13/22 01/13/22 Unknown History [Percocet 7.5/325 mg] Sucralfate [Carafate] 1 gm PO ACHS 01/13/22 01/13/22 Unknown History metroNIDAZOLE [Flagyl] 500 mg PO Q8HR 01/13/22 01/13/22 Unknown History traMADoL [Ultram] 50 mg PO Q4HR PRN 01/13/22 01/13/22 Unknown History Active Meds: Active Medications Haloperidol (Haloperidol 5 Mg Tab) 5 mg PO BID [facility] Last Admin: 01/18/22 20:59 Dose: 5 mg Haloperidol Lactate (Haloperidol Lactate 5 Mg/1 Ml Inj) 5 mg IM BID [facility] Last Admin: 01/19/22 09:18 Dose: 5 mg Hyoscyamine (Hyoscyamine Subl 0.125 Mg Tab) 0.125 mg PO Q4HR PRN PRN Reason: cramping Ibuprofen (Ibuprofen 800 Mg Tab) 800 mg PO Q8HR PRN PRN Reason: Pain , Severe (7-10) Last Admin: 01/14/22 13:46 Dose: 800 mg [place] Carbonate ([place] Carbonate 300 Mg Cap) 300 mg PO TID [facility] Last Admin: 01/19/22 08:27 Dose: Not Given Lorazepam (Lorazepam 2 Mg/Ml Vial) 1 mg IM Q4H PRN PRN Reason: Agitation Last Admin: 01/19/22 09:17 Dose: 1 mg Nicotine (Nicotine 21 Mg/24 Hr Patch) 21 mg TD QDAY [facility] Last Admin: 01/19/22 09:16 Dose: 21 mg Sucralfate (Sucralfate 1 Gm Tab) 1 gm PO [facility] Last Admin: 01/19/22 08:27 Dose: Not Given Tramadol HCl (Tramadol 50 Mg Tab) 50 mg PO Q4HR PRN PRN Reason: PAIN Last Admin: 01/18/22 23:09 Dose: 50 mg Ziprasidone (Ziprasidone Mesylate 20 Mg Vial) 20 mg IM Q4H PRN PRN Reason: Agitation Last Admin: 01/16/22 22:14 Dose: 20 mg Results - Results Labs/Vitals: Laboratory Last Values WBC 5.1 K/mm3 (4.5-11.0) 01/13/22 10:38 RBC 4.13 M/mm3 (3.65-5.03) 01/13/22 10:38 Hgb 13.3 gm/dl (10.1-14.3) 01/13/22 10:38 Hct 40.6 % (30.3-42.9) 01/13/22 10:38 MCV 98 fl (79-97) H 01/13/22 10:38 MCH 32 pg (28-32) 01/13/22 10:38 MCHC 33 % (30-34) 01/13/22 10:38 RDW 13.7 % (13.2-15.2) 01/13/22 10:38 Plt Count 183 K/mm3 (140-440) 01/13/22 10:38 Lymph % (Auto) 26.0 % (13.4-35.0) 01/13/22 10:38 [place] % (Auto) 6.4 % (0.0-7.3) 01/13/22 10:38 Eos % (Auto) 1.6 % (0.0-4.3) 01/13/22 10:38 Baso % (Auto) 1.2 % (0.0-1.8) 01/13/22 10:38 Lymph # (Auto) 1.3 K/mm3 (1.2-5.4) 01/13/22 10:38 [place] # (Auto) 0.3 K/mm3 (0.0-0.8) 01/13/22 10:38 Eos # (Auto) 0.1 K/mm3 (0.0-0.4) 01/13/22 10:38 Baso # (Auto) 0.1 K/mm3 (0.0-0.1) 01/13/22 10:38 Seg Neutrophils % 64.8 % (40.0-70.0) 01/13/22 10:38 Seg Neutrophils # 3.3 K/mm3 (1.8-7.7) 01/13/22 10:38 Sodium 143 mmol/L (137-145) 01/13/22 10:44 Potassium 4.6 mmol/L (3.6-5.0) 01/13/22 10:44 Chloride 109.6 mmol/L (98-107) H 01/13/22 10:44 Carbon Dioxide 27 mmol/L (22-30) 01/13/22 10:44 Anion Gap 11 mmol/L 01/13/22 10:44 BUN 12 mg/dL (7-17) 01/13/22 10:44 Creatinine 0.5 mg/dL (0.6-1.2) L 01/13/22 10:44 Estimated GFR > 60 ml/min 01/13/22 10:44 BUN/Creatinine Ratio 24 % 01/13/22 10:44 Glucose 89 mg/dL (65-100) 01/13/22 10:44 POC Glucose 138 mg/dL (70-105) H 01/15/22 19:39 Hemoglobin A1c 5.5 % (4-6) 01/13/22 10:44 Calcium 9.0 mg/dL (8.4-10.2) 01/13/22 10:44 Total Bilirubin 0.20 mg/dL (0.1-1.2) 01/13/22 10:44 AST 26 units/L (5-40) 01/13/22 10:44 ALT 20 units/L (7-56) 01/13/22 10:44 Alkaline Phosphatase 87 units/L (35-129) 01/13/22 10:44 Total Protein 5.9 g/dL (6.3-8.2) L 01/13/22 10:44 Albumin 3.5 g/dL (3.9-5) L 01/13/22 10:44 Albumin/Globulin Ratio 1.5 % 01/13/22 10:44 Triglycerides 115 mg/dL (2-149) 01/13/22 10:44 Cholesterol 141 mg/dL (50-199) 01/13/22 10:44 LDL Cholesterol Direct 81 mg/dL (50-130) 01/13/22 10:44 HDL Cholesterol 43 mg/dL (40-59) 01/13/22 10:44 Cholesterol/HDL Ratio 3.27 % 01/13/22 10:44 TSH 0.946 mlU/mL (0.270-4.200) 01/13/22 10:38 [place] 0.1 mmol/L (0.0-1.2) 01/14/22 10:38 Last Vital Signs Temp 97.2 F L 01/16/22 09:09 Pulse 95 H 01/16/22 09:06 Resp 20 01/18/22 23:09 BP 91/61 01/16/22 09:06 Pulse Ox 97 01/16/22 09:09
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
[2022-01-19 20:10] VITALS: BP 95/54
[2022-01-20] MEDS: SUCRALFATE 1 GM TAB PO SCH ×4 (08:30→16:15)
[2022-01-20] MEDS: LITHIUM CARBONATE 300 MG CAP PO SCH ×2 (08:31→15:01)
--- NOTE | 2022-01-20 08:40 | Discharge Summary ---
Providers - Providers Date of Admission: 01/13/22 17:48 Date of discharge: 01/20/22 Attending physician: BRIONNA STARKEY MD 01/13/22 16:59 Consult to Physician [CONS] Routine Comment: Consulting Provider: BELLA SWIFT Physician Instructions: Reason For Exam: manage medical conditons Primary care physician: CHEESE BLENDER Hospitalization Reason for admission: suicidal ideation Admitting Diagnosis: F25.0 - SCHIZOAFFECTIVE DISORDER, BIPOLAR TYPE Condition: Stable Hospital course: The patient was provided inpatient psychiatric treatment with safe and supportive environment, group/individual therapy, psychiatric medication, medication adjustment, adverse effect monitor, medical evaluation, medical treatment, social service assessment, social support meeting, placement assessment and psycho-education. The patients mood, cognition, behavior, motivation, compliance to treatment and appreciation on family/social support are improved and stabilized. At the time of discharge, the patient had no suicidal ideas, no homicidal ideas, no aggressive thoughts, no endangering behavior and no debilitating adverse effects. The patient agreed on the treatment plan, understood the risk, benefit, alternative treatment, potential consequence of no treatment, and gave informed consent. Progress Note: 01/19:The patient was seen today. The patient states she is doing well. She is easily irritable and angry; she became angry when told she not getting discharge d today. She denies any current suicidal/homicidal ideation and denies hallucination 01/18:The patient was seen today. She is calm and cooperative. She is withdrawn but states she is doing well. The patient is doing well on Haldol. She denies any current suicidal/homicidal ideation and denies hallucination. No aggressive behavior reported. 01/17:The patient was seen eating breakfast on the floor. The patient is refusing to engage; selective mutism. Per nurse,"Last evening the patient presented as angry and irritable. She was verbally abusive to staff. Patient has [id number]. She will be talking normally and then veer off into a bizarre topic that has nothing to do with conversation. She stated she took the sim card out of her phone and swallowed it. At bedtime the patient refused her medications and asked for a shot. She was given Geodon IM. Patient went to her room for a short time and lay in bed but did not sleep. She spent the night coming out asking for ice water and juice. Patient is discussed being upset that she is still here stating that she did not want to go anywhere. Patient states "This always happens to me." This fiction and nonfiction prose writer tried to discuss medication compliance with patient but she immediately stated she would not take medications because they didn't help. She described the "noises" that come to her head as she points behind her ear. She talks about how she has never had things in her life that others have. Yet she refuses to discuss taking meds." Start Haldol 5mg po/IM BID, Klonopin 0.5mg po BID PRN. 01/16:The patient was seen this morning. The patient presents as angry, Isolating and focused on discharge. She lacks insight " I told them not to place in a place like this, I don't want to take that lithium." the patient is verbally aggressive and irritable. She denies SI/HI. Per nurse, " pt alert and oriented to person and place, angry affect, irritable, verbally aggressive towards staff, medication compliant, good appetite, constant asking for something to eat, staff offered extra snack, Pt observed responding to internal stimuli, pacing back and forth in her room, yelling, slammed the door multiple times, refused verbal redirection. Geodon 20mg IM administered prn for severe agitation at 0013 with good effect." 01/15:The patient was seen this morning. She reports doing doing well and focused on discharge. The patient reported having intermittent AVH. non- commanding. The patient denies depression. She denies SI/HI. Disposition: 30 STILL A PATIENT Allergies/Adverse Reactions: Allergies No Known Allergies Allergy (Unverified 01/13/22 17:36) Vital Signs: Last Vital Signs Temp 98.2 F 01/19/22 19:27 Pulse 103 H 01/19/22 19:27 Resp 18 01/19/22 19:27 BP 95/54 01/19/22 19: Pulse Ox 96 01/19/22 19:27 Last Lab: Laboratory Last Values WBC 5.1 K/mm3 (4.5-11.0) 01/13/22 10:38 RBC 4.13 M/mm3 (3.65-5.03) 01/13/22 10:38 Hgb 13.3 gm/dl (10.1-14.3) 01/13/22 10:38 Hct 40.6 % (30.3-42.9) 01/13/22 10:38 MCV 98 fl (79-97) H 01/13/22 10:38 MCH 32 pg (28-32) 01/13/22 10:38 MCHC 33 % (30-34) 01/13/22 10:38 RDW 13.7 % (13.2-15.2) 01/13/22 10:38 Plt Count 183 K/mm3 (140-440) 01/13/22 10:38 Lymph % (Auto) 26.0 % (13.4-35.0) 01/13/22 10:38 [place] % (Auto) 6.4 % (0.0-7.3) 01/13/22 10:38 Eos % (Auto) 1.6 % (0.0-4.3) 01/13/22 10:38 Baso % (Auto) 1.2 % (0.0-1.8) 01/13/22 10:38 Lymph # (Auto) 1.3 K/mm3 (1.2-5.4) 01/13/22 10:38 [place] # (Auto) 0.3 K/mm3 (0.0-0.8) 01/13/22 10:38 Eos # (Auto) 0.1 K/mm3 (0.0-0.4) 01/13/22 10:38 Baso # (Auto) 0.1 K/mm3 (0.0-0.1) 01/13/22 10:38 Seg Neutrophils % 64.8 % (40.0-70.0) 01/13/22 10:38 Seg Neutrophils # 3.3 K/mm3 (1.8-7.7) 01/13/22 10:38 Sodium 143 mmol/L (137-145) 01/13/22 10:44 Potassium 4.6 mmol/L (3.6-5.0) 01/13/22 10:44 Chloride 109.6 mmol/L (98-107) H 01/13/22 10:44 Carbon Dioxide 27 mmol/L (22-30) 01/13/22 10:44 Anion Gap 11 mmol/L 01/13/22 10:44 BUN 12 mg/dL (7-17) 01/13/22 10:44 Creatinine 0.5 mg/dL (0.6-1.2) L 01/13/22 10:44 Estimated GFR > 60 ml/min 01/13/22 10:44 BUN/Creatinine Ratio 24 % 01/13/22 10:44 Glucose 89 mg/dL (65-100) 01/13/22 10:44 POC Glucose 138 mg/dL (70-105) H 01/15/22 19:39 Hemoglobin A1c 5.5 % (4-6) 01/13/22 10:44 Calcium 9.0 mg/dL (8.4-10.2) 01/13/22 10:44 Total Bilirubin 0.20 mg/dL (0.1-1.2) 01/13/22 10:44 AST 26 units/L (5-40) 01/13/22 10:44 ALT 20 units/L (7-56) 01/13/22 10:44 Alkaline Phosphatase 87 units/L (35-129) 01/13/22 10:44 Total Protein 5.9 g/dL (6.3-8.2) L 01/13/22 10:44 Albumin 3.5 g/dL (3.9-5) L 01/13/22 10:44 Albumin/Globulin Ratio 1.5 % 01/13/22 10:44 Triglycerides 115 mg/dL (2-149) 01/13/22 10:44 Cholesterol 141 mg/dL (50-199) 01/13/22 10:44 LDL Cholesterol Direct 81 mg/dL (50-130) 01/13/22 10:44 HDL Cholesterol 43 mg/dL (40-59) 01/13/22 10:44 Cholesterol/HDL Ratio 3.27 % 01/13/22 10:44 TSH 0.946 mlU/mL (0.270-4.200) 01/13/22 10:38 [place] 0.1 mmol/L (0.0-1.2) 01/14/22 10:38 Core Measure Documentation - Palliative Care Palliative Care/ Comfort Measures: Not Applicable - Core Measures Any of the following diagnoses?: none - VTE Discharge Requirements Deep Vein Thrombosis/Pulmonary Embolism Present on Admission: No Exam - Constitutional Vitals: Temp Pulse Resp BP Pulse Ox 98.2 F 103 H 18 95/54 96 01/19/22 19:27 08/09/22 19:27 01/19/22 19:27 01/19/22 19:27 01/19/22 19:27 Plan Activity: advance as tolerated Care Plan Goals: Maintain good and stable mental health. Plan of Treatment: The patient should be compliant with medications, not to use drugs and not to drink alcohol.The patient understands that if suicidal ideas, homicidal ideas, or any endangering thoughts/behavior arise, they should immediately seek for emergent assistance including but not limited to crisis hot line and emergency room. Follow up with outpatient Psychiatrist and PCP within 7 - 14 days of discharge. Recommend Haldol DEC Monthly injection. Follow up with: PRIMARY CARE, [Primary Care Provider] - 7 Days Prescriptions: [place] Carbonate [Eskalith] 300 mg PO TID 30 Days #90 capsule haloperidoL [Haldol] 5 mg PO BID 30 Days #60 tablet
[2022-01-20] MEDS: HALOPERIDOL 5 MG TAB PO SCH (09:05)
[2022-01-20] MEDS: NICOTINE 21 MG/24 HR PATCH TD SCH (09:05)
[2022-01-20] MEDS: HALOPERIDOL LACTATE 5 MG/1 ML INJ IM SCH (09:06)
[2022-01-20] MEDS: IBUPROFEN 800 MG TAB PO PRN (12:15)
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
== END 2022-01-20 16:54 | disposition home or self-care (01) | DRG 885 ==
LOC: 3A 16:26 → UNDOADMIN 16:26 → 5A 01-13 17:48 → EDBD 01-13 17:48
PROVIDERS: ADMIT Psychiatry & Neurology Psychiatry; ATTEND Psychiatry & Neurology Psychiatry
DX: F25.0 Schizoaffective disorder, bipolar type (principal); Z59.01 Sheltered homelessness; B19.20 Unspecified viral hepatitis C without hepatic coma; I95.9 Hypotension, unspecified; F32.A Depression, unspecified; G89.4 Chronic pain syndrome
CPT/HCPCS: 36415; 80053; 80061; 80178; 82962; 83036; 84443; 85025; G0378; J1630; J2060; J3486